=== PATIENT | female | born 1990 | race Hispanic/Latino ===

== ENCOUNTER 2019-06-07 19:41 | Emergency (ER) | payer MEDICAID ==
[2019-06-07] MEDS ORDERED: ACETAMINOPHEN 325 MG TAB ONE (21:26)
== END 2019-06-07 22:08 | disposition home or self-care (01) ==
LOC: EDH 19:41
DX: O99.511 Diseases of the respiratory system complicating pregnancy, first trimester (principal); J11.1 Influenza due to unidentified influenza virus with other respiratory manifestations; Z79.899 Other long term (current) drug therapy; Z88.6 Allergy status to analgesic agent; Z3A.01 Less than 8 weeks gestation of pregnancy
CPT/HCPCS: 87804